=== PATIENT | female | born 1965 | race Caucasian/White ===

== ENCOUNTER 2019-09-26 13:50 | Inpatient (IN) | payer BC, OTHER, SELFPAY ==
[~2019-09-26] VITALS: Ht 175.3 cm; Wt 62.0 kg
--- NOTE | 2019-09-26 14:11 | NUR ---
EKG performed in triage
--- NOTE | 2019-09-26 16:20 | NUR ---
TASK RN: PT AMBULATORY TO ROOM FROM [facility]
--- NOTE | 2019-09-26 16:29 | NUR ---
PT CHANGED INTO GOWN, ALL MONITORS PLACED. MONITORED RHYTHM CONFIRMS FREQUENT RUNS OF BIGEMMINY. VS OTHERWISE STABLE. DR PALOMINO AT BEDSIDE, ASSESSMENT REVIEWED AND POC DISCUSSED. ORDERS REC'D./
--- NOTE | 2019-09-26 16:42 | NUR ---
PIV ESTABLISHED, LABS DRAWN. CALL LIGHT W/I REACH. NAD NOTED
[2019-09-26 16:48] LABS: BASOPHILS # (AUTO) 0.04 x10^3/uL (0-0.1); BASOPHILS % (AUTO) 1 % (0-1); EOSINOPHILS # (AUTO) 0.15 x10^3/uL (0-0.4); EOSINOPHILS % (AUTO) 2 % (1-7); LYMPHOCYTES % (AUTO) 38 % (22-44); MD NO; MEAN CORPUSCULAR HEMOGLOBIN 31.4 pg (27.0-34.8); MEAN CORPUSCULAR HGB CONC 32.6 g/dL (32.4-35.8); MEAN CORPUSCULAR VOLUME 96.3 fL (80-100); MEAN PLATELET VOLUME 7.6 fL (7.4-10.4); MONOCYTES # (AUTO) 0.82 x10^3/uL (0.2-0.8); MONOCYTES % (AUTO) 9 % (2-9); NEUTROPHILS # (AUTO) 4.81 x10^3/uL (1.8-6.8); NEUTROPHILS % (AUTO) 51 % (42-75); PLATELET COUNT 370 x10^3/uL (130-400); RED BLOOD COUNT 4.49 x10^6/uL (3.82-5.3); RED CELL DISTRIBUTION WIDTH 14.5 % (9.6-15.2)
[2019-09-26 16:58] LABS: ALANINE AMINOTRANSFERASE 21 U/L (12-78); ALBUMIN 4.1 g/dL (3.4-5.0); ANION GAP 8 mmol/L (5-15); CALCIUM 8.8 mg/dL (8.5-10.1); CHLORIDE 104 mmol/L (98-107)
[2019-09-26] MEDS ORDERED: SODIUM CHLORIDE FLUSH 10ML SYR IVF ONE (17:00)
[2019-09-26 17:03] LABS: ALKALINE PHOSPHATASE 40 U/L (45-117); BILIRUBIN,TOTAL 0.8 mg/dL (0.2-1.0); TOTAL PROTEIN 7.4 g/dL (6.4-8.2); TROPONIN I < 0.015 ng/mL (0.000-0.045)
--- NOTE | 2019-09-26 17:45 | NUR ---
Pt in bed, awaiting admit bed, WCTM.
[2019-09-26] MEDS ORDERED: KETOROLAC 30 MG/1 ML IV PRN (18:00)
[2019-09-26] MEDS ORDERED: ONDANSETRON ODT 4 MG PO PRN (18:00)
[2019-09-26] MEDS ORDERED: hydrALAzine 20 MG/ML, 1ML IVPush PRN (18:00)
[2019-09-26] MEDS ORDERED: IBUPROFEN 600 MG TABLET PO PRN (18:00)
[2019-09-26] MEDS ORDERED: POLYETHYLENE GLYCOL 17 GM PACKET PO PRN (18:00)
[2019-09-26] MEDS ORDERED: TRAZODONE 50MG TABLET PO PRN (18:00)
[2019-09-26] MEDS ORDERED: ACETAMINOPHEN 325 MG TABLET PO PRN (18:00)
[2019-09-26] MEDS ORDERED: ONDANSETRON 2MG/ML, 2ML IVPush PRN (18:00)
[2019-09-26] MEDS ORDERED: LACTATED RINGERS 1,000 ML IV ONE (18:00)
[2019-09-26 19:29] VITALS: BP 150/87
[2019-09-26] MEDS: ENOXAPARIN 30 MG/0.3 ML SQ SCH (20:14)
[2019-09-27 01:20] VITALS: BP 137/72
[2019-09-27 05:17] LABS: ANION GAP 4 mmol/L (5-15); CALCIUM 8.5 mg/dL (8.5-10.1); CHLORIDE 108 mmol/L (98-107)
[2019-09-27 05:18] LABS: CREATININE 0.78 mg/dL (0.55-1.02)
[2019-09-27 05:25] LABS: BASOPHILS # (AUTO) 0.05 x10^3/uL (0-0.1); BASOPHILS % (AUTO) 1 % (0-1); EOSINOPHILS # (AUTO) 0.17 x10^3/uL (0-0.4); EOSINOPHILS % (AUTO) 3 % (1-7); LYMPHOCYTES # (AUTO) 2.87 x10^3/uL (1-3.4); LYMPHOCYTES % (AUTO) 43 % (22-44); MD NO; MEAN CORPUSCULAR HEMOGLOBIN 31.4 pg (27.0-34.8); MEAN CORPUSCULAR HGB CONC 32.5 g/dL (32.4-35.8); MEAN CORPUSCULAR VOLUME 96.4 fL (80-100); MEAN PLATELET VOLUME 7.6 fL (7.4-10.4); MONOCYTES # (AUTO) 0.68 x10^3/uL (0.2-0.8); MONOCYTES % (AUTO) 10 % (2-9); NEUTROPHILS # (AUTO) 2.88 x10^3/uL (1.8-6.8); NEUTROPHILS % (AUTO) 43 % (42-75); PLATELET COUNT 339 x10^3/uL (130-400); RED BLOOD COUNT 4.23 x10^6/uL (3.82-5.3); RED CELL DISTRIBUTION WIDTH 14.3 % (9.6-15.2)
[2019-09-27 07:15] VITALS: BP 133/86
[2019-09-27] MEDS: ENOXAPARIN 30 MG/0.3 ML SQ SCH ×2 (09:11→19:44)
[2019-09-27 14:00] VITALS: BP 146/78
[2019-09-27 18:29] VITALS: BP 133/82
[2019-09-27] MEDS: METOPROLOL TARTRATE 25 MG TABLET PO SCH (18:34)
[2019-09-28 01:26] VITALS: BP 120/86
[2019-09-28 06:18] VITALS: BP 123/86
[2019-09-28] MEDS: METOPROLOL TARTRATE 25 MG TABLET PO SCH (06:19)
[2019-09-28 07:52] VITALS: BP 112/74
[2019-09-28] MEDS: ENOXAPARIN 30 MG/0.3 ML SQ SCH (07:54)
[2019-09-28] MEDS ORDERED: METO25TA91 PO (08:05)
[2019-09-28] MEDS ORDERED: METOPROLOL SUCCINATE 25 MG TAB.ER.24H PO SCH (18:00)
== END 2019-09-28 10:40 | disposition home or self-care (01) | DRG 316 ==
LOC: ED 17:25 → EDIP 17:26 → ED 17:41 → 5SO 19:06 → DCLOUNGE 09-28 10:30
PROVIDERS: ADMIT Family Medicine; ATTEND Family Medicine
DX: R00.8 Other abnormalities of heart beat (principal); E03.9 Hypothyroidism, unspecified; K58.9 Irritable bowel syndrome, unspecified; F12.90 Cannabis use, unspecified, uncomplicated; Z87.891 Personal history of nicotine dependence; Z90.49 Acquired absence of other specified parts of digestive tract; Z90.89 Acquired absence of other organs
CPT/HCPCS: 36415; 71045; 80048; 80053; 83735; 84439; 84443; 84481; 84484; 85025; 93005; 93017; 93306; G0378; J1650; J7120

== ENCOUNTER 2019-12-20 07:48 | Day surgery (SDC) | payer BC ==
[2019-12-18 10:21] LABS: BASOPHILS # (AUTO) 0.05 x10^3/uL (0-0.1); BASOPHILS % (AUTO) 1 % (0-1); EOSINOPHILS # (AUTO) 0.14 x10^3/uL (0-0.4); EOSINOPHILS % (AUTO) 1 % (1-7); LYMPHOCYTES # (AUTO) 3.63 x10^3/uL (1-3.4); LYMPHOCYTES % (AUTO) 35 % (22-44); MD NO; MEAN CORPUSCULAR HEMOGLOBIN 31.7 pg (27.0-34.8); MEAN CORPUSCULAR HGB CONC 33.1 g/dL (32.4-35.8); MEAN CORPUSCULAR VOLUME 95.8 fL (80-100); MEAN PLATELET VOLUME 7.8 fL (7.4-10.4); MONOCYTES # (AUTO) 1.02 x10^3/uL (0.2-0.8); MONOCYTES % (AUTO) 10 % (2-9); NEUTROPHILS # (AUTO) 5.66 x10^3/uL (1.8-6.8); NEUTROPHILS % (AUTO) 54 % (42-75); PLATELET COUNT 350 x10^3/uL (130-400); RED CELL DISTRIBUTION WIDTH 14.4 % (9.6-15.2)
[2019-12-18 10:29] LABS: INTERNATIONAL NORMALIZED RATIO 0.96 (0.93-1.1); PROTHROMBIN TIME 10.2 Seconds (9.6-11.5)
[2019-12-18 10:33] LABS: ANION GAP 6 mmol/L (5-15); CALCIUM 8.7 mg/dL (8.5-10.1); CHLORIDE 105 mmol/L (98-107)
[~2019-12-20] VITALS: Ht 177.8 cm; Wt 61.0 kg
[~2019-12-20 07:48] MED LIST: ACYC-114 PO; CARISOPRODOL PO; METO-93 PO; METO25TA91 PO
[2019-12-20] MEDS ORDERED: SODIUM CHLORIDE 0.9% 1,000 ML IV SCH (08:26)
[2019-12-20 08:29] VITALS: BP 172/73
[2019-12-20] MEDS ORDERED: MIDAZOLAM 1 MG/ML, 5ML ONE (09:51)
[2019-12-20] MEDS ORDERED: ISOPROTERENOL 0.2MG/ML, 5ML ONE ×2 (09:51→11:10)
[2019-12-20] MEDS ORDERED: LIDOCAINE 2%, 20ML ONE (09:51)
[2019-12-20] MEDS ORDERED: FENTANYL PF 100 MCG/2ML ONE (09:51)
[2019-12-20] MEDS ORDERED: ADENOSINE 6 MG/2 ML ONE (09:51)
[2019-12-20] MEDS ORDERED: ACYCLOVIR 400 MG TABLET PO PRN (12:00)
[2019-12-20] MEDS ORDERED: ACETAMINOPHEN 325 MG TABLET ONE (12:49)
== END 2019-12-20 16:10 | disposition home or self-care (01) ==
LOC: CACL 07:48
PROVIDERS: ATTEND Internal Medicine Cardiovascular Disease
DX: I49.3 Ventricular premature depolarization (principal); I47.2 Ventricular tachycardia; Z79.899 Other long term (current) drug therapy; Z79.01 Long term (current) use of anticoagulants; Z72.89 Other problems related to lifestyle
CPT/HCPCS: 36415; 71046; 80048; 85025; 85610; 85730; 93623; 93654; C1732; C1894; C2630; J0153; J2250; J3010

== ENCOUNTER 2020-11-17 10:04 | Emergency (ER) | payer BC ==
[~2020-11-17] VITALS: Ht 175.3 cm; Wt 64.0 kg
[2020-11-17 10:45] VITALS: BP 179/109
[2020-11-17] MEDS ORDERED: METOCLOPRAMIDE 5 MG/ML, 2ML ONE (10:56)
[2020-11-17] MEDS ORDERED: METOCLOPRAMIDE 5 MG/ML, 2ML IVPush ONE (11:00)
[2020-11-17] MEDS ORDERED: SODIUM CHLORIDE FLUSH 10ML SYR IVF ONE (11:00)
[2020-11-17 11:04] LABS: BASOPHILS % (AUTO) 1 % (0-1); EOSINOPHILS % (AUTO) 1 % (1-7); LYMPHOCYTES % (AUTO) 30 % (22-44); MD NO; MEAN CORPUSCULAR HEMOGLOBIN 31.5 pg (27.0-34.8); MEAN CORPUSCULAR HGB CONC 33.6 g/dL (32.4-35.8); MEAN PLATELET VOLUME 7.2 fL (7.4-10.4); MONOCYTES % (AUTO) 8 % (2-9); NEUTROPHILS % (AUTO) 60 % (42-75); PLATELET COUNT 379 x10^3/uL (130-400); RED BLOOD COUNT 4.41 x10^6/uL (3.82-5.3); RED CELL DISTRIBUTION WIDTH 13.9 % (9.6-15.2)
[2020-11-17 11:15] LABS: ALBUMIN 4.1 g/dL (3.4-5.0); ANION GAP 6 mmol/L (5-15); CALCIUM 9.2 mg/dL (8.5-10.1); CHLORIDE 108 mmol/L (98-107); CREATININE 0.82 mg/dL (0.55-1.02)
[2020-11-17 11:18] LABS: TROPONIN I < 0.015 ng/mL (0.000-0.045)
--- NOTE | 2020-11-17 11:53 | NUR ---
PT TAKEN TO CT
[2020-11-17] MEDS ORDERED: OMNIPAQUE 350 MG/ML, 75ML BOTTLE ONE (12:15)
[2020-11-17] MEDS ORDERED: KETOROLAC 30 MG/1 ML IVPush ONE (13:00)
[2020-11-17] MEDS ORDERED: KETOROLAC 30 MG/1 ML ONE (13:32)
== END 2020-11-17 13:45 | disposition home or self-care (01) ==
LOC: ED 11:33
DX: R51.9 Headache, unspecified (principal); R07.89 Other chest pain; R00.9 Unspecified abnormalities of heart beat
CPT/HCPCS: 36415; 70450; 70496; 71045; 80048; 82040; 84484; 85025; 85379; 93005; 96374; 96375; 99285; J1885; J2765; Q9967